=== PATIENT | female | born 1935 | race Caucasian/White ===

== ENCOUNTER → 2016-05-13 | Outpatient (CLI) | payer MEDICARE ==
[~2016-05-13] MED LIST: ALEN70TA47 PO; CALC-84 PO; CLOR7.5T3 PO; DOCU50CA4 PO; HYDR1TAB71 PO; LOSA100T3 PO; LSRT50T PO; PIND5TAB2 PO; VIT1TABL57 PO; [UNRECOGNIZED DRUG - CODE] PO
[2016-05-13 10:57] LABS: BASOPHILS % (AUTO) 1 % (0-2); EOSINOPHILS # (AUTO) 0.1 10^3uL; EOSINOPHILS % (AUTO) 1 % (0-4); LYMPHOCYTES # (AUTO) 1.2 X10^3; MEAN CORPUSCULAR HGB CONC 33.1 g/dL (31.0-37.0); MONOCYTES # (AUTO) 0.5 X10^3; MONOCYTES % (AUTO) 10 % (3-11); NEUTROPHILS # (AUTO) 3.7 X10^3; NEUTROPHILS % (AUTO) 68 % (51-67); PLATELET COUNT 245 10^3uL (150-450); WHITE BLOOD COUNT 5.54 10^3uL (4.0-11.0)
[2016-05-13 10:58] LABS: MEAN CORPUSCULAR HEMOGLOBIN 33.1 PG (26.0-34.0); MEAN CORPUSCULAR VOLUME 100 FL (80-100)
[2016-05-13 11:25] LABS: ALBUMIN 4.8 g/dL (3.4-5.0); ANION GAP 16.9 MEQ/L (3-15); CALCULATED IONIZED CALCIUM 3.9 mg/dL (3.8-4.6); TOTAL PROTEIN 7.8 g/dL (6.4-8.5)
[2016-05-13 11:43] LABS: BILIRUBIN,URINE Negative (Negative); CLARITY,URINE Clear; GLUCOSE, URINE (UA) Negative (Negative); LEUKOCYTE ESTERASE ,URINE Negative (Negative); PH,URINE 7.5 (5.0 - 8.0)
[2016-05-13 11:51] LABS: COLOR,URINE Light Yellow
== END ==
LOC: LAB 10:44
PROVIDERS: ATTEND Physician Assistant
DX: R53.81 Other malaise (principal)
CPT/HCPCS: 36415; 80053; 81003; 85025

== ENCOUNTER → 2016-05-13 | Outpatient (CLI) | payer MEDICARE ==
[2016-05-13 13:34] VITALS: BP 140/100
--- NOTE | 2016-05-13 13:34 | Urgent Care T Sheet Gen (E) ---
Intake General Temperature (Fahrenheit): 98.6 Pulse: 71 Blood Pressure Systolic: 140 Blood Pressure Diastolic: 100 Respirations: 18 SPO2: 97 Description of Symptoms Patient presents with daughter stating the last few days she hasn't felt "right ". States her neck and low back aches and she feels jittery. Patient has a history of cervical and lumbar fusion so she states those areas always ache but this is worse. Patient has a history of anxiety for which she take Clorazepate , however she hasn't been taking her usual dose due to running out of pills. Takes Amlodipine, Losartan and Metoprolol for blood pressure. Daughter states she had a UTI several weeks ago which took some time to get over. Tried calling Dr Johnston however he was booked. History of Present Illness Allergies: Coded Allergies: acetaminophen (Unverified Allergy, Unknown, N/V, 04/18/14) alendronate sodium (Unverified Allergy, Unknown, esophogus problem, ) hydrocodone (Unverified Allergy, Unknown, N/V, 04/18/14) morphine (Unverified Allergy, Unknown, nose swells up, 04/18/14) Home Meds Reported Medications Docusate Sodium (Stool Softener)50 Mg [id number] Mg PO DAILY 04/18/14 Vit D3 & K/Berberine Hcl/Hops (Ostera Tablet)1 Each Tablet2 Each PO DAILY 04/18/14 Losartan Potassium 50 Mg [id number] Mg PO DAILY 04/18/14 Calcium Carb/Vit D3/Minerals (Calcium 600 + D Tablet)1 Each Tablet2 Each PO DAILY 02/01/12 Clorazepate Dipotassium 7.5 Mg Tablet7.5 Mg PO PRN 02/01/12 Amlodipine/Atorvastatin (Amlodipine-Atorvast 2.5-10 mg)1 Each Tablet1 Each PO DAILY 02/01/12 Pindolol 5 Mg [id number] Mg PO BID 02/01/12 Respiratory Constitutional Symptoms: No Fever, Malaise EENTM: No symptoms reported Respiratory: No symptoms reported Cardiovascular: No symptoms reported Musculoskeletal: Back pain Muscle pain Neck pain All Other Systems Reviewed Remaining Systems: All other systems reviewed with negative findings Past [id number] Hx Patient's Social History Alcohol Use: Denies Use Surgeries/Hospitalizations Hospitalization/Surgery Hx: tonsilectomy,cervical lami, lumbar lami, breast biopsy, cataract Respiratory Respiratory History: None Cardiovascular Cardiovascular History: Hypertension, Murmurs Neuro/Muscular Neuro/Muscular History: Headache, Arthirits, Back Problems Gastrointestinal GI/Endocrine History: None Diabetes Diabetes: No Cancer History of Cancer?: No Physical Exam Physical Exam General Appearance: WD/WN No apparent distress Eyes, Ears, Nose, Throat Ex: PERRL/EOMI Pharynx normal Neck Exam: SuppleNo Lymphadenopathy Respiratory Exam: Lungs clear Normal breath sounds Cardiovascular Exam: Regular rate, rhythm Back Exam: Other (patient is diffusely tender over the neck and back. worse along the occiputs and SI joints.) Neurologic/Psychiatric Exam: Oriented times 4 CN's II-X nml No motor deficits No sensory deficits Progress/Orders Progress Note: Progress Note CBC showed: RBC low 3.57, Hgb low 11.8 CMP showed: Chloride low 95, anion gap high 16.9, Total bilirubin high 1.4 UA showed: unremarkable. Departure Urgent Care Impression Impression: Primary Impression: Malaise Additional Impression: Anxiety Departure Disposition: 01 HOME OR SELF-CARE Condition: Stable Referrals: CLEMENTE JOHNSTON MD (PCP) Additional Instructions: Long discussion with patient and daughter regarding symptoms. Her meds have been stable for months, aside from not taking the Clorazepate due to running out of pills. She feels jittery within, not necessarily shaky. She has no tremor on exam. Neuro exam was normal as well. I ordered CBC, CMP, and UA. Aside from the borderline anemia, it was unremarkable and didn't give any indications for her symptoms. Most likely her symptoms are anxiety related. The patient's grandson is not doing well with his schizophrenia and the patient is concerned with that. Daughter also states Camila hasn't been sleeping well. When I called her daughter, Angelique, to discuss lab results, she said she had just gotten a refill of the anxiety medication. I agree with restarting that as her symptoms appear more anxiety and lack of sleep related and not electrolyte or infection related. Daughter agrees. She is to f/u with Dr Johnston on Monday for recheck. Return as needed or present to ER if symptoms worsen or change. Patient and daughter understand DC instructions. All questions were answered. End of report . KYMBERLY HUBER May 13, 2016 10:59
== END ==
LOC: MHUC 10:04
PROVIDERS: ATTEND Physician Assistant
DX: R53.81 Other malaise (principal); F41.8 Other specified anxiety disorders
CPT/HCPCS: 99213

== ENCOUNTER 2016-08-16 14:58 | Outpatient (CLI) | payer MEDICARE ==
[~2016-08-16] VITALS: Ht 147.3 cm; Wt 45.0 kg
--- NOTE | 2016-08-16 15:05 | NUR ---
Pt arrived ambulatory to unit taken to room 341. IV started in RFA with 22 g intracath, good blood return and flushed easily. Site secured with tegaderm and tape. 1510. Reclast IV started per pump. Infusing without difficulty.
[2016-08-16] MEDS ORDERED: SODIUM CHLORIDE FLUSH 10 ML ONE (15:08)
[2016-08-16] MEDS ORDERED: NS FLUSH 3 ML PRN IV (15:10)
[2016-08-16] MEDS ORDERED: NS FLUSH 10 ML PRN IV (15:10)
[2016-08-16] MEDS: ZOLEDRONIC ACID 5 MG/100 ML 100 ML IV ONE ×2 (16:08→16:09)
--- NOTE | 2016-08-16 16:10 | NUR ---
Reclast infusion completed. IV dcd, pressure held on site for 3 minutes. Gauze and tape applied. 1612 Pt left ambulatory with daughter to home.
[2016-08-16 16:15] VITALS: BP 138/100
[2016-08-16 16:17] VITALS: BP 155/85
== END 2016-08-16 16:15 | disposition home or self-care (01) ==
LOC: EUOP 14:58 → ICU 15:01 → EUOP 16:15
PROVIDERS: ATTEND Internal Medicine
DX: M81.0 Age-related osteoporosis without current pathological fracture (principal)
CPT/HCPCS: 96365; J3489